=== PATIENT | female | born 1930 | race Caucasian/White ===

== ENCOUNTER → 2017-06-24 | Outpatient (CLI) | payer OTHER ==
[~2017-06-24] MED LIST: ASPI325T80 PO; CEFD300C37 PO; DIVA125T3 PO; DONE5TAB7 PO; LORA0.5T PO; LOSA25TA5 PO; LOSA50TA6 PO; METO25TA35 PO; METR500T PO; MIRT15TA6 PO; MULT-257 PO; PIPE2.255 IVPB; QUET50TA PO
== END | disposition home or self-care (01) ==
LOC: CFH 13:55
PROVIDERS: ATTEND Physician Assistant
DX: I08.3 Combined rheumatic disorders of mitral, aortic and tricuspid valves (principal); I11.9 Hypertensive heart disease without heart failure; I25.10 Atherosclerotic heart disease of native coronary artery without angina pectoris; F03.90 Unspecified dementia, unspecified severity, without behavioral disturbance, psychotic disturbance, mood disturbance, and anxiety; I25.2 Old myocardial infarction; Z95.5 Presence of coronary angioplasty implant and graft; Z86.73 Personal history of transient ischemic attack (TIA), and cerebral infarction without residual deficits
CPT/HCPCS: 93306

== ENCOUNTER 2017-07-11 12:50 | Inpatient (IN) | payer OTHER ==
[~2017-07-11] VITALS: Ht 152.4 cm; Wt 73.8 kg
[2017-07-11] MEDS ORDERED: CEFTAROLINE 600 MG in SODIUM CHLORIDE 0.9% 100 ML IV ONE (15:30)
[2017-07-11 15:49] LABS: HEMOGLOBIN 13.5 g/dL (11.7-16.4); WHITE BLOOD COUNT 14.4 x10^3/uL (3.4-10)
[2017-07-11 15:59] LABS: BLOOD UREA NITROGEN 16 mg/dL (7-18)
[2017-07-11] MEDS ORDERED: SODIUM CHLORIDE 0.9% 1,000 ML IV SCH (17:55)
[2017-07-11] MEDS ORDERED: ACETAMINOPHEN 325 MG TABLET PO PRN (18:00)
[2017-07-11] MEDS ORDERED: ONDANSETRON 2MG/ML, 2ML IVPush PRN (18:00)
[2017-07-11] MEDS ORDERED: ENOXAPARIN 40 MG/0.4 ML SQ SCH (18:00)
[2017-07-11] MEDS ORDERED: ENALAPRILAT 1.25 MG/ML, 2ML IVPush PRN (18:00)
[2017-07-11] MEDS ORDERED: DOCUSATE 100 MG CAPSULE PO PRN (18:00)
[2017-07-11] MEDS ORDERED: BISACODYL 10 MG SUPP PR PRN (18:00)
[2017-07-11] MEDS ORDERED: POLYETHYLENE GLYCOL 17 GM PACKET PO PRN (18:00)
[2017-07-11] MEDS ORDERED: VANCOMYCIN PER PHARMACY MC PRN (18:30)
[2017-07-11] MEDS ORDERED: ENOXAPARIN 40 MG/0.4 ML ONE (18:30)
[2017-07-11] MEDS ORDERED: TEMPLATE NON-FORMULARY MED. (Quetiapine Fumarate** 50 MG) PO SCH (18:30)
[2017-07-11] MEDS: AMPICILLIN/SULBACTAM 3 GM in SODIUM CHLORIDE 0.9% 100 ML IV SCH (18:30)
[2017-07-11] MEDS ORDERED: MIRTAZAPINE 15 MG TAB.RAPDIS PO SCH (21:00)
[2017-07-11] MEDS ORDERED: DONEPEZIL 5 MG TABLET PO SCH (21:00)
[2017-07-11 21:30] VITALS: BP 144/74
[2017-07-11] MEDS ORDERED: POTA10TA11 PO (21:35)
[2017-07-11] MEDS ORDERED: FURO40TA6 PO (21:36)
[2017-07-11] MEDS ORDERED: LORA0.5T PO (21:38)
[2017-07-11] MEDS ORDERED: PHARMACOKINETIC MONITORING MC PRN (22:00)
[2017-07-11] MEDS ORDERED: PHARMACOKINETIC CONSULTATION MC ONE (22:00)
[2017-07-11] MEDS ORDERED: QUETIAPINE 25MG TABLET PO SCH (23:30)
[2017-07-11] MEDS: DIVALPROEX 125 MG TABLET.DR PO SCH (23:58)
[2017-07-11] MEDS: LOSARTAN 25MG TABLET PO SCH (23:58)
[2017-07-11] MEDS: QUETIAPINE 25MG TABLET PO SCH (23:59)
[2017-07-11] MEDS: VANCOMYCIN PMX 1GM/200ML 200 ML IV SCH (23:59)
[2017-07-12] MEDS ORDERED: QUETIAPINE 25MG TABLET PO SCH
[2017-07-12] MEDS: AMPICILLIN/SULBACTAM 3 GM in SODIUM CHLORIDE 0.9% 100 ML IV SCH ×4 (01:51→20:30)
[2017-07-12 04:00] VITALS: BP 122/75
[2017-07-12 05:09] LABS: HEMATOCRIT 31.4 % (34.6-47.8); HEMOGLOBIN 10.7 g/dL (11.7-16.4); WHITE BLOOD COUNT 9.1 x10^3/uL (3.4-10)
[2017-07-12 05:14] LABS: BLOOD UREA NITROGEN 15 mg/dL (7-18)
[2017-07-12] MEDS: METOPROLOL TARTRATE 25 MG TABLET PO SCH ×2 (05:34→18:04)
[2017-07-12 07:48] VITALS: BP 117/63
[2017-07-12] MEDS: ASPIRIN 325 MG TABLET EC PO SCH (09:29)
[2017-07-12] MEDS: DIVALPROEX 125 MG TABLET.DR PO SCH ×2 (09:29→20:31)
[2017-07-12] MEDS: MULTIVITAMIN 1 TABLET PO SCH (09:30)
[2017-07-12 13:01] VITALS: BP 114/71
[2017-07-12] MEDS ORDERED: ENOXAPARIN 30 MG/0.3 ML SQ SCH (18:00)
[2017-07-12 18:50] VITALS: BP 105/64
[2017-07-12] MEDS: QUETIAPINE 25MG TABLET PO SCH (20:31)
[2017-07-12] MEDS: LOSARTAN 25MG TABLET PO SCH (20:31)
[2017-07-13] MEDS: AMPICILLIN/SULBACTAM 3 GM in SODIUM CHLORIDE 0.9% 100 ML IV SCH ×4 (01:20→20:29)
[2017-07-13 01:26] VITALS: BP 132/71
[2017-07-13] MEDS: METOPROLOL TARTRATE 25 MG TABLET PO SCH ×2 (05:38→18:02)
[2017-07-13 05:39] LABS: HEMATOCRIT 32.4 % (34.6-47.8); WHITE BLOOD COUNT 8.8 x10^3/uL (3.4-10)
[2017-07-13 05:54] LABS: BLOOD UREA NITROGEN 17 mg/dL (7-18)
[2017-07-13 07:15] VITALS: BP 130/76
[2017-07-13] MEDS: ASPIRIN 325 MG TABLET EC PO SCH (08:08)
[2017-07-13] MEDS: MULTIVITAMIN 1 TABLET PO SCH (08:08)
[2017-07-13] MEDS: DIVALPROEX 125 MG TABLET.DR PO SCH ×2 (08:08→20:29)
[2017-07-13] MEDS: SODIUM CHLORIDE 0.9% 1,000 ML IV SCH (11:11)
[2017-07-13 13:39] VITALS: BP 93/57
[2017-07-13] MEDS: ENOXAPARIN 30 MG/0.3 ML SQ SCH (18:03)
[2017-07-13 19:13] VITALS: BP 124/66
[2017-07-13] MEDS: LOSARTAN 25MG TABLET PO SCH (20:29)
[2017-07-13] MEDS: QUETIAPINE 25MG TABLET PO SCH (20:29)
[2017-07-13] MEDS: LORazepam 0.5MG TABLET PO PRN (23:15)
[2017-07-14] MEDS: VANCOMYCIN PMX 1GM/200ML 200 ML IV SCH (00:15)
[2017-07-14 02:00] VITALS: BP 131/76
[2017-07-14] MEDS: AMPICILLIN/SULBACTAM 3 GM in SODIUM CHLORIDE 0.9% 100 ML IV SCH ×4 (02:13→20:53)
[2017-07-14 06:03] LABS: HEMOGLOBIN 10.4 g/dL (11.7-16.4); WHITE BLOOD COUNT 6.4 x10^3/uL (3.4-10)
[2017-07-14 06:08] LABS: BLOOD UREA NITROGEN 18 mg/dL (7-18)
[2017-07-14 06:13] VITALS: BP 118/66
[2017-07-14] MEDS: METOPROLOL TARTRATE 25 MG TABLET PO SCH ×2 (06:26→17:50)
[2017-07-14] MEDS: SODIUM CHLORIDE 0.9% 1,000 ML IV SCH (08:00)
[2017-07-14] MEDS ORDERED: SODIUM CHLORIDE 0.9% 1,000 ML IV SCH (08:30)
[2017-07-14] MEDS: MULTIVITAMIN 1 TABLET PO SCH (09:41)
[2017-07-14] MEDS: DIVALPROEX 125 MG TABLET.DR PO SCH ×2 (09:41→20:59)
[2017-07-14] MEDS: ASPIRIN 325 MG TABLET EC PO SCH (09:41)
[2017-07-14 15:09] VITALS: BP 129/72
[2017-07-14] MEDS: ENOXAPARIN 30 MG/0.3 ML SQ SCH (17:50)
[2017-07-14 20:29] VITALS: BP 163/95
[2017-07-14] MEDS: QUETIAPINE 25MG TABLET PO SCH (20:59)
[2017-07-14] MEDS: LOSARTAN 25MG TABLET PO SCH (20:59)
[2017-07-15] MEDS: AMPICILLIN/SULBACTAM 3 GM in SODIUM CHLORIDE 0.9% 100 ML IV SCH ×4 (02:06→20:46)
[2017-07-15 02:45] VITALS: BP 139/79
[2017-07-15 05:17] LABS: BLOOD UREA NITROGEN 14 mg/dL (7-18)
[2017-07-15] MEDS: METOPROLOL TARTRATE 25 MG TABLET PO SCH ×2 (06:05→18:12)
[2017-07-15 07:08] VITALS: BP 145/70
[2017-07-15] MEDS ORDERED: POTASSIUM CHLORIDE 20 MEQ TAB.ER.PRT PO ONE (07:30)
[2017-07-15] MEDS: DIVALPROEX 125 MG TABLET.DR PO SCH ×2 (08:01→20:47)
[2017-07-15] MEDS: MULTIVITAMIN 1 TABLET PO SCH (08:01)
[2017-07-15] MEDS: ASPIRIN 325 MG TABLET EC PO SCH (08:02)
[2017-07-15] MEDS ORDERED: VANC1VIA3 IV (08:28)
[2017-07-15] MEDS ORDERED: AMPI3VIA IV (08:28)
[2017-07-15 13:34] VITALS: BP 130/70
[2017-07-15] MEDS: ENOXAPARIN 30 MG/0.3 ML SQ SCH (18:12)
[2017-07-15 19:48] VITALS: BP 147/81
[2017-07-15] MEDS: LOSARTAN 25MG TABLET PO SCH (20:47)
[2017-07-15] MEDS: QUETIAPINE 25MG TABLET PO SCH (20:47)
[2017-07-15] MEDS: LORazepam 0.5MG TABLET PO PRN (20:59)
[2017-07-15] MEDS: VANCOMYCIN PMX 1GM/200ML 200 ML IV SCH (23:28)
[2017-07-16 01:38] VITALS: BP 131/94
[2017-07-16] MEDS: AMPICILLIN/SULBACTAM 3 GM in SODIUM CHLORIDE 0.9% 100 ML IV SCH ×4 (02:05→20:27)
[2017-07-16] MEDS: METOPROLOL TARTRATE 25 MG TABLET PO SCH ×2 (06:08→18:16)
[2017-07-16 07:00] VITALS: BP 153/86
[2017-07-16] MEDS: ASPIRIN 325 MG TABLET EC PO SCH (07:58)
[2017-07-16] MEDS: DIVALPROEX 125 MG TABLET.DR PO SCH ×2 (07:58→20:28)
[2017-07-16] MEDS: MULTIVITAMIN 1 TABLET PO SCH (07:58)
[2017-07-16 13:55] VITALS: BP 145/76
[2017-07-16] MEDS: ENOXAPARIN 30 MG/0.3 ML SQ SCH (18:16)
[2017-07-16 20:22] VITALS: BP 158/74
[2017-07-16] MEDS: LOSARTAN 25MG TABLET PO SCH (20:28)
[2017-07-16] MEDS: QUETIAPINE 25MG TABLET PO SCH (20:28)
[2017-07-17 01:27] VITALS: BP 148/77
[2017-07-17] MEDS: AMPICILLIN/SULBACTAM 3 GM in SODIUM CHLORIDE 0.9% 100 ML IV SCH ×3 (01:42→14:00)
[2017-07-17] MEDS: METOPROLOL TARTRATE 25 MG TABLET PO SCH ×2 (05:28→18:09)
[2017-07-17 07:34] VITALS: BP 162/85
[2017-07-17] MEDS: MULTIVITAMIN 1 TABLET PO SCH (08:14)
[2017-07-17] MEDS: ASPIRIN 325 MG TABLET EC PO SCH (08:14)
[2017-07-17] MEDS: DIVALPROEX 125 MG TABLET.DR PO SCH (08:14)
[2017-07-17] MEDS ORDERED: VANCOMYCIN 1,300 MG in SODIUM CHLORIDE 0.9% 250 ML IV SCH (11:00)
[2017-07-17 13:44] VITALS: BP 152/83
[2017-07-17] MEDS ORDERED: LOSA25TA5 PO (17:50)
[2017-07-17] MEDS ORDERED: METO25TA35 PO (17:50)
[2017-07-17] MEDS: ENOXAPARIN 30 MG/0.3 ML SQ SCH (18:08)
== END 2017-07-17 18:52 | DRG 871 ==
LOC: ED 16:39 → EDIP 17:55 → 3NE 21:31
PROVIDERS: ADMIT Internal Medicine; ATTEND Internal Medicine
DX: A41.9 Sepsis, unspecified organism (principal); N17.0 Acute kidney failure with tubular necrosis; E44.0 Moderate protein-calorie malnutrition; L03.115 Cellulitis of right lower limb; E87.1 Hypo-osmolality and hyponatremia; F03.90 Unspecified dementia, unspecified severity, without behavioral disturbance, psychotic disturbance, mood disturbance, and anxiety; I11.9 Hypertensive heart disease without heart failure; F32.9 Major depressive disorder, single episode, unspecified; H91.90 Unspecified hearing loss, unspecified ear; I25.10 Atherosclerotic heart disease of native coronary artery without angina pectoris; Z66 Do not resuscitate; Z86.73 Personal history of transient ischemic attack (TIA), and cerebral infarction without residual deficits; I25.2 Old myocardial infarction; Z83.3 Family history of diabetes mellitus; Z68.31 Body mass index [BMI] 31.0-31.9, adult; Z95.5 Presence of coronary angioplasty implant and graft
CPT/HCPCS: 36415; 80048; 80202; 82040; 83605; 84145; 85025; 87040; 87070; 87077; 87186; 87205; 93922; 96372; J0295; J0712; J1650; J3370; J7030; J7050